=== PATIENT | female | born 1970 | race Caucasian/White ===

== ENCOUNTER 2021-06-11 08:06 | Day surgery (SDC) | payer BC ==
[2021-06-06 16:14] VITALS: BMI 25.0
[2021-06-11] MEDS ORDERED: PROPOFOL 20 ML ONE ×2 (09:16→09:38)
[2021-06-11] MEDS ORDERED: MIDAZOLAM HCL 2 MG/2 ML SINGLE DOSE VIAL ONE (09:16)
[2021-06-11] MEDS ORDERED: LIDOCAINE HCL 2% (20ML MULTI-DOSE VIAL) ONE (09:17)
[2021-06-11] MEDS ORDERED: SUCCINYLCHOLINE CHLORIDE 200 MG/10 ML SYRINGE ONE (09:17)
[2021-06-11] MEDS ORDERED: LIDOCAINE HCL/PF 2% SDV 5ML VIAL ONE (09:53)
[2021-06-11] MEDS ORDERED: ONDANSETRON 4 MG/2 ML VIAL ONE (09:53)
[2021-06-11] MEDS ORDERED: KETOROLAC TROMETHAMINE 30 MG/1 ML VIAL ONE (09:53)
[2021-06-11 10:08] VITALS: TEMP 97.7
[2021-06-11 10:39] VITALS: BP 120/60; PULSE 64
== END 2021-06-11 10:50 | disposition home or self-care (01) ==
LOC: FASU 08:06
PROVIDERS: ATTEND Orthopaedic Surgery Hand Surgery
PROC: 0LN70ZZ Release Right Hand Tendon, Open Approach (ICD-10-PCS; principal; 2021-06-11 09:38)
DX: M65.311 Trigger thumb, right thumb (principal)